=== PATIENT | female | born 1945 | race Caucasian/White ===

== ENCOUNTER 2020-12-03 11:05 | Day surgery (SDC) | payer MEDICARE, OTHER ==
[2020-12-03] VITALS (9 sets, daily range): BP systolic 105–137; BP diastolic 31–73
[~2020-12-03] VITALS: Ht 172.7 cm; Wt 98.7 kg
[2020-12-03] MEDS ORDERED: normal saline 1,000 ML IV SCH ×2 (11:35→14:10)
[2020-12-03] MEDS ORDERED: diphenhydrAMINE 25mg capsule PO PRN (11:35)
[2020-12-03 12:03] LABS: ALBUMIN 4.3 G/DL (3.4-5.0); ANION GAP 14 (8-16); BLOOD UREA NITROGEN 17 MG/DL (7-18); BUN/CREATININE RATIO 15.5 (6.6-38.0); CALCIUM 9.9 MG/DL (8.5-10.1); CHLORIDE 104 MMOL/L (99-107); GLUCOSE 114 MG/DL (70-104); MAGNESIUM 1.9 MG/DL (1.5-2.4); SODIUM 143 MMOL/L (135-145); TOTAL CARBON DIOXIDE 24.8 MMOL/L (24-32); eGFR 49 ML/MIN
[2020-12-03 12:09] LABS: BASOPHILS # (AUTO) 0.1 X10'3 (0-0.2); BASOPHILS % (AUTO) 0.6 % (0-1); EOSINOPHILS # (AUTO) 0.6 X10'3 (0-0.9); EOSINOPHILS % (AUTO) 4.7 % (0-6); HEMATOCRIT 39.7 % (35.0-45.0); HEMOGLOBIN 12.7 g/dl (12.0-16.0); LYMPHOCYTES # (AUTO) 3.1 X10'3 (1.1-4.8); MEAN CORPUSCULAR HEMOGLOBIN 24.8 PG (27.0-31.0); MEAN CORPUSCULAR VOLUME 77.3 FL (78-98); MEAN PLATELET VOLUME 8.7 FL (7.4-10.4); MONOCYTES # (AUTO) 0.9 X10'3 (0-0.9); MONOCYTES % (AUTO) 7.2 % (2-12); NEUTROPHILS # (AUTO) 7.7 X10'3 (1.8-7.7); NEUTROPHILS % (AUTO) 62.5 % (42-75); PLATELET COUNT 405 X10'3 (140-440); RED BLOOD COUNT 5.14 X10'6 (4.20-5.60); RED CELL DISTRIBUTION WIDTH 17.6 % (11.5-14.5); WHITE BLOOD COUNT 12.3 X10'3 (4.5-11.0)
[2020-12-03] MEDS ORDERED: midazolam 1 mg/ML 2ml injection ONE (12:13)
[2020-12-03] MEDS ORDERED: fentaNYL/PF 50MCG/1 ML 2ML syringe ONE (12:13)
[2020-12-03] MEDS ORDERED: LIDOcaine 1% (10mg/ml)w/preservative injection 20ml MDV ONE (12:13)
[2020-12-03] MEDS ORDERED: iohexol 350MG/ML 100ml bottle IV ONE (12:13)
[2020-12-03] MEDS ORDERED: iohexol 350 MG/ML 50ML vial IV ONE (12:13)
[2020-12-03] MEDS ORDERED: AMLO10TA13 PO (12:34)
[2020-12-03] MEDS ORDERED: PANT40TA54 PO (12:34)
[2020-12-03] MEDS ORDERED: ESTR1VAG VG (12:34)
[2020-12-03] MEDS ORDERED: TRIA1CAP6 PO (12:34)
[2020-12-03] MEDS ORDERED: ATOR20TA66 PO (12:34)
[2020-12-03] MEDS ORDERED: HYDR-3964 PO (12:34)
[2020-12-03] MEDS ORDERED: TOLT4CAP PO (12:34)
[2020-12-03] MEDS ORDERED: NITR0.4T48 SL (12:34)
[2020-12-03] MEDS ORDERED: FLUO-167 PO (12:34)
[2020-12-03] MEDS ORDERED: METF-950 PO (12:34)
[2020-12-03] MEDS ORDERED: QUE9P PO (12:36)
[2020-12-03] MEDS ORDERED: MULT-1085 PO (12:36)
[2020-12-03] MEDS ORDERED: LACT1CAP65 PO (12:36)
[2020-12-03] MEDS ORDERED: ondansetron/PF 4mg/2ml inj IV PRN (14:10)
[2020-12-03] MEDS ORDERED: HYDROcodone/acetaminophen 5mg/325mg tablet PO PRN (14:10)
[2020-12-03] MEDS ORDERED: HYDROcodone/acetaminophen 10/325mg tab PO PRN (14:10)
[2020-12-03] MEDS ORDERED: proCHLORperazine 10 MG/2 ml inj IV PRN (14:10)
== END 2020-12-03 17:10 | disposition home or self-care (01) ==
LOC: SSTAY O 11:05
PROVIDERS: ATTEND Internal Medicine Cardiovascular Disease
DX: R94.39 Abnormal result of other cardiovascular function study (principal); I25.10 Atherosclerotic heart disease of native coronary artery without angina pectoris; I65.22 Occlusion and stenosis of left carotid artery; I10 Essential (primary) hypertension; E78.5 Hyperlipidemia, unspecified; E11.9 Type 2 diabetes mellitus without complications; K21.9 Gastro-esophageal reflux disease without esophagitis; Z79.899 Other long term (current) drug therapy; Z79.01 Long term (current) use of anticoagulants; Z90.49 Acquired absence of other specified parts of digestive tract; Z90.710 Acquired absence of both cervix and uterus; Z98.890 Other specified postprocedural states; Z82.49 Family history of ischemic heart disease and other diseases of the circulatory system; Z83.3 Family history of diabetes mellitus; Z85.118 Personal history of other malignant neoplasm of bronchus and lung; Z87.891 Personal history of nicotine dependence
CPT/HCPCS: 36415; 80048; 82948; 83735; 85025; 85610; 93005; 93458; 93571; 99152; C1760; C1769; C1894; J1644; J2001; J2250; J3010; J7030; Q0163; Q9967; 99153; A4620; A6258